=== PATIENT | male | born 1985 | race Caucasian/White ===

== ENCOUNTER 2016-04-24 17:17 | Emergency (ER) | payer OTHER ==
[~2016-04-24] VITALS: Ht 177.8 cm; Wt 90.7 kg
[~2016-04-24 17:17] MED LIST: AMOXICILLIN500 MG PO; AMOXICILLIN875 M1 PO; AMOXIL500 MG PO; BENZONATATE200 MG PO; BYSTOLIC 5MG5 MG PO; DELTASONE20 MG PO; GUAIFENESIN-COD10 ML PO; IBUPROFEN800 M1 PO; MEDROL DOSEPAK1 PAC PO; MOBIC15 M1 PO; MOTRIN800 MG PO; NAPROSYN500 M1 PO; NASONEX17 GM NASB; NOVAPLUS V0.09 MG/Ac INH; PREDNISONE20 M1 PO; PROVENTIL0.09 MG/A1 INH; ROBITUSSIN W/CO10 ML PO; TESSALON PERLE100 MG PO; VICODIN 5-3001 EACH PO; ZITHROMAX Z-PA250 M1 PO; ZOFRAN ODT4 M1 PO
[2016-04-24 17:23] VITALS: BP 141/88
--- NOTE | 2016-04-24 17:47 | ED HEAD/FACIAL INJ COMPLAINT ---
History of Present Illness General Chief Complaint: Headache Stated Complaint: PEDROZA,DIZZY,NAUSEA S/P HITTING HEAD X 2 DAYS AGO Source: patient Exam Limitations: no limitations Vital Signs & Intake/Output Vital Signs & Intake/Output Vital Signs Date Time Temp Pulse Resp B/P Pulse O2 O2 Flow FiO2 Ox Delivery Rate 04/24 1723 97.5 91 16 141/88 97 Room Air Allergies Coded Allergies: lisinopril (Severe, SWELLING TINGLING IN FACE AND LIP 04/24/16) Reconcile Medications Albuterol Sulfate (Proair Hfa) 90 MCG HFA.AER.AD 2 PUF INH PRN RESPIRATORY ( Reported) Ergocalciferol (Vitamin D2) (Vitamin D2) 50,000 UNIT CAPSULE 1 CAP PO QFRI SUPPLEMENT (Reported) Gemfibrozil 600 MG TABLET 1 TAB PO BID CHOLESTEROL (Reported) Ibuprofen 800 MG TABLET 1 TAB PO TID headache Meclizine HCl 25 MG TABLET 1 TAB PO TIDPRN dizziness Triage Note: PT STATES HE HIT HIS HEAD A COUPLE OF DAYS AGO ON A PIECE OF METAL AND STATES HE HAS BEEN DIZZY AND HAD NAUSEA SINCE. Triage Nurses Notes Reviewed? yes Onset: Abrupt Severity: severe Method of Injury: direct blow Loss of Consciousness: no loss of consciousness HPI: 30-year-old male comes into emergency room for further evaluation after hitting his head 2 days ago. No loss of consciousness. Ranging severe headache since then. Pressure. Nausea. Dizziness. Denies any other associated symptoms. Denies any neck pain. (DARELL DAMON) Past History Travel History Traveled to [place] past 21 day No Medical History Any Pertinent Medical History? 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 No (DARELL DAMON) Review of Systems Review of Systems Constitutional: Reports: no symptoms. EENTM: Reports: no symptoms. Respiratory: Reports: no symptoms. Cardiovascular: Reports: no symptoms. GI: Reports: no symptoms. Genitourinary: Reports: no symptoms. Musculoskeletal: Reports: no symptoms. Skin: Reports: no symptoms. Neurological/Psychological: Reports: see HPI. Hematologic/Endocrine: Reports: no symptoms. Immunologic/Allergic: Reports: no symptoms. All Other Systems: Reviewed and Negative (DARELL DAMON) Physical Exam Physical Exam General Appearance: well developed/nourished, mild distress Head: atraumatic, normal appearance Eyes: Bilateral: normal appearance, PERRL, EOMI. Ears, Nose, Throat: normal ENT inspection, hearing grossly normal Neck: normal inspection Respiratory: normal breath sounds, no respiratory distress Cardiovascular: regular rate/rhythm Back: normal inspection Extremities: normal inspection, normal range of motion, no edema Psychiatric: awake, alert, oriented x 3 Cranial Nerves: normal hearing, normal speech, PERRL Coordination/Gait: normal gait Motor/Sensory: no motor/sensory deficits Skin: intact, normal color, warm/dry Lymphatic: no anterior cervical yobani (DARELL DAMON) Progress Differential Diagnosis: corneal abrasion, c-spine injury, facial fracture, globe injury, ICH, orbit fracture, skull fracture, CONCUSSION Plan of Care: Orders Procedure Date/time Status CT HEAD WO IV CONTRAST 04/24 1744 Active Diagnostic Imaging: Viewed by Me: CT Scan. Discussed w/RAD: CT Scan. Radiology Impression: EXAM TYPE: CAT - CT HEAD WO IV CONTRAST EXAMINATION: CT HEAD WITHOUT CONTRAST CLINICAL INFORMATION: Headache, head trauma COMPARISON: September 02, [address] scan TECHNIQUE: Contiguous axial imaging was performed from the skull base to vertex without intravenous administration of contrast. DLP: 600.71 mGy-cm FINDINGS: There is no evidence of acute intracranial hemorrhage or territorial infarction. No abnormal mass effect or midline shift is seen. Browning to white matter differentiation is well preserved. No extra-axial fluid collections are identified. The ventricles are normal in size. There is CSF density in posterior fossa which could represent arachnoid cyst. It has not changed since comparison exam. There is no abnormal attenuation within the brain parenchyma. The osseous structures and soft tissues are normal. No acute skull fracture. The mastoid air cells and visualized portions of the paranasal sinuses are well aerated. IMPRESSION: No acute intracranial hemorrhage. DICTATED BY: CHILANGO ROSA MD DATE/TIME DICTATED:04/24/161810 HEDGE FUND MANAGER:JUAN A DATE/TIME TRANSCRIBED:04/24/161810 (DARELL DAMON) Departure Departure Disposition: HOME OR SELF CARE Condition: Stable Clinical Impression Primary Impression: Concussion Referrals: LARISSA BUNCH MD (PCP/Family) Additional Instructions: Take ibuprofen 800 and headache. Follow-up with your primary care doctor. No contact sports. Decreased visual STIMULI with electronics, TV and reading. Please go over all results of today's visit with your primary care doctor. Contact your primary care doctor to let them know you were here in the emergency room. There may be nonspecific findings which may not be related to your visit today here in the emergency room but may require further evaluation and chronic monitoring by your primary care doctor. If you had a laceration today the chance of foreign body always remains. You should follow-up with your primary care doctor for recheck in 3-5 days for a wound check. If you had an x-ray done there is a chance that a fracture could have been missed on initial read and you should follow-up with your primary care doctor for repeat x-rays if symptoms persist. If your blood pressure was elevated here in the emergency room please have rechecked by her primary care doctor within the next 48 hours by your primary care doctor. If you were prescribed a narcotic here in the emergency room or any type of controlled substances you're not allowed to drive while taking this medication or operate any type of heavy machinery. Narcotics can make you feel lightheaded dizziness nausea and can cause constipation. You may need to milk pickup driver a stool softener. Thank you for choosing [facility] emergency room. Please return to the emergency room immediately if you have any other concerns worsening of symptoms. Departure Forms: Customer Survey General Discharge Information Prescriptions: Current Visit Scripts Ibuprofen 1 TAB PO TID #30 TAB Meclizine HCl 1 TAB PO TIDPRN #20 TAB Comments 04/24/2016 7:11:03 PM Patient clinically looks well. Patient is nontoxic-appearing. Patient is no apparent distress. No evidence of acute trauma. Return if any other concerns worsening symptoms. Patient understands and agrees with plan.. (DARELL DAMON) PA/JEWEL GRINDER Co-Sign Statement Statement: ED Attending supervision documentation- [] I saw and evaluated the patient. I have also reviewed all the pertinent lab results and diagnostic results. I agree with the findings and the plan of care as documented in the PA's/JEWEL GRINDER's documentation. [X] I have reviewed the ED Record and agree with the PA's/JEWEL GRINDER's documentation. [] Additions or exceptions (if any) to the PAs/JEWEL GRINDER's note and plan are summarized below: [] (TAMIKO ANGEL,SHELBY)
[2016-04-24] MEDS ORDERED: GEMFIBROZIL600 M1 PO (18:05)
[2016-04-24] MEDS ORDERED: PROAIR HFA8.5 GM INH (18:06)
[2016-04-24] MEDS ORDERED: VITAMIN D250000 UNIT PO (18:06)
--- NOTE | 2016-04-24 18:19 | CT SCAN REPORT ---
EXAMINATION: CT HEAD WITHOUT CONTRAST CLINICAL INFORMATION: Headache, head trauma COMPARISON: September 02, [address] scan TECHNIQUE: Contiguous axial imaging was performed from the skull base to vertex without intravenous administration of contrast. DLP: 600.71 mGy-cm FINDINGS: There is no evidence of acute intracranial hemorrhage or territorial infarction. No abnormal mass effect or midline shift is seen. Browning to white matter differentiation is well preserved. No extra-axial fluid collections are identified. The ventricles are normal in size. There is CSF density in posterior fossa which could represent arachnoid cyst. It has not changed since comparison exam. There is no abnormal attenuation within the brain parenchyma. The osseous structures and soft tissues are normal. No acute skull fracture. The mastoid air cells and visualized portions of the paranasal sinuses are well aerated. IMPRESSION: No acute intracranial hemorrhage.
[2016-04-24] MEDS ORDERED: MECLIZINE HCL25 MG PO (18:54)
[2016-04-24] MEDS ORDERED: IBUPROFEN800 M1 PO (18:54)
== END 2016-04-24 18:57 ==
LOC: ERH 17:17
DX: S06.0X9A Concussion with loss of consciousness of unspecified duration, initial encounter (principal); W22.8XXA Striking against or struck by other objects, initial encounter

== ENCOUNTER 2016-07-24 12:16 | Emergency (ER) | payer OTHER ==
[~2016-07-24] VITALS: Ht 177.8 cm; Wt 106.1 kg
[~2016-07-24 12:16] MED LIST changes: +GEMFIBROZIL600 M1 PO; +MECLIZINE HCL25 MG PO; +PROAIR HFA8.5 GM INH; +VITAMIN D250000 UNIT PO
[2016-07-24 12:20] VITALS: BP 150/90
[2016-07-24] MEDS ORDERED: MEDROL4 M2 PO (14:02)
[2016-07-24] MEDS ORDERED: AZITHROMYCIN250 M1 PO (14:02)
--- NOTE | 2016-07-24 14:03 | ED INFLUENZA/URI COMPLAINT ---
History of Present Illness General Chief Complaint: Upper Respiratory Sx/Fever Stated Complaint: "STUFFY NOSE, SORE THROAT" X 1 DAY Source: patient Exam Limitations: no limitations Allergies Coded Allergies: lisinopril (Severe, SWELLING TINGLING IN FACE AND LIP 04/24/16) Triage Note: TRIAGE: 31 Y/O MALE PRESENTS FOR C/O STUFFY NOSE AND "HOT" THROAT X1 DAY. Triage Nurses Notes Reviewed? yes HPI: This patient is a 31-year-old male who presented to the emergency department today for evaluation of chest congestion, nasal congestion, general malaise, and sore throat. The patient reported that his symptoms began yesterday. He reported that the day before he was feeling, "not very good," but he reported that his symptoms have progressed over the last day. The patient reported that his throat hurts when he takes a deep breath. He denied any difficulty breathing. He denies any fevers or chills. No abdominal pain, nausea, vomiting , or diarrhea. (DANIEL DIAZ,JEF) Vital Signs & Intake/Output Vital Signs & Intake/Output ED Intake and Output 07/25 0000 05 1200 Intake Total Output Total Balance Patient 234 lb Weight Weight Reported by Patient Measurement Method Reconcile Medications Albuterol Sulfate (Proair Hfa) 90 MCG HFA.AER.AD 2 PUF INH PRN RESPIRATORY ( Reported) Azithromycin 250 MG TABLET 1 DP PO AD SINUSITIS 2 the first day followed by 1 for days 2-5 Ergocalciferol (Vitamin D2) (Vitamin D2) 50,000 UNIT CAPSULE 1 CAP PO QFRI SUPPLEMENT (Reported) Gemfibrozil 600 MG TABLET 1 TAB PO BID CHOLESTEROL (Reported) Ibuprofen 800 MG TABLET 1 TAB PO TID headache Meclizine HCl 25 MG TABLET 1 TAB PO TIDPRN dizziness Methylprednisolone. (Medrol) 4 MG TAB.DS.PK 1 DP PO AD PHARYNGITIS 6 on day 1 then reduce by one tablet daily until gone (KORI ANGEL,NOELLE) Past History Travel History Traveled to [place] past 21 day No Medical History Any Pertinent Medical History? 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 No (JEF SANCHEZ PA-C) Review of Systems Review of Systems Constitutional: Reports: no symptoms. EENTM: Reports: see HPI. Respiratory: Reports: no symptoms. Cardiovascular: Reports: no symptoms. GI: Reports: no symptoms. Genitourinary: Reports: no symptoms. Musculoskeletal: Reports: no symptoms. Skin: Reports: no symptoms. Neurological/Psychological: Reports: no symptoms. All Other Systems: Reviewed and Negative (JEF SANCHEZ PA-C) Physical Exam Physical Exam Ears, Nose, Throat: moist mucous membrane, hearing grossly normal, MILD PHARYNGEAL INJECTION WITH NO ORAL PHARYNGEAL LESIONS OR EDEMA. nO TONSILLAR EXUDATES OR UVULAR SHIFT. nO UVULAR EDEMA. nO TRISMUS OR DROOLING. nO MANDIBULAR OR MAXILLARY EDEMA. pOSITIVE NASAL CONGESTION Comments: Well-developed well-nourished person in no acute distress perrla BILATERALLY Nose is atraumatic. Neck: Supple with bilateral submandibular lymphadenopathy which is nontender. No midline tenderness. Range of motion Back: Normal gait Respiratory: Chest nontender. No respiratory distress. Speaking in full sentences Extremity: Normal and equal pulses. Neuro: Alert oriented x3, motor sensory normal, cranial nerves II through XII grossly intact. Skin: No appreciable rash on exposed skin, skin is warm and dry. Psych: Mood and affect is normal, memory and judgment is normal. Core Measures Severe Sepsis Present: No Septic Shock Present: No (JEF SANCHEZ PA-C) Progress Differential Diagnosis: influenza, meningitis, neutropenia, otitis, pneumonia, pharyngitis, sinusitis Plan of Care: This patient is a 31-year-old male who presented for evaluation of nasal congestion, chest congestion, and sore throat times one day. Likely developing sinusitis versus viral pharyngitis. This patient will be started on outpatient symptomatic management. Initial ED EKG: none (JEF SANCHEZ PA-C) Departure Departure Disposition: HOME OR SELF CARE Condition: Stable Clinical Impression Primary Impression: Sinusitis Qualifiers: Sinusitis location: unspecified location Chronicity: unspecified Qualified Code: J32.9 - Chronic sinusitis, unspecified Referrals: JESICA KOCH MD (PCP/Family) Additional Instructions: Please take antibiotic as prescribed for the full duration. Take Medrol Dosepak as prescribed. Return for any worsening symptoms or concerns. Departure Forms: Customer Survey General Discharge Information Prescriptions: Current Visit Scripts Azithromycin 1 DP PO AD #6 TAB 2 the first day followed by 1 for days 2-5 Methylprednisolone. (Medrol) 1 DP PO AD #1 DP 6 on day 1 then reduce by one tablet daily until gone (DANIEL DIAZ,JEF) PA/BATCHMAKER Co-Sign Statement Statement: ED Attending supervision documentation- I saw and evaluated the patient. I have also reviewed all the pertinent lab results and diagnostic results. I agree with the findings and the plan of care as documented in the PA's/BATCHMAKER's documentation. x I have reviewed the ED Record and agree with the PA's/BATCHMAKER's documentation. [] Additions or exceptions (if any) to the PAs/BATCHMAKER's note and plan are summarized below: [] (KORI ANGEL,NOELLE)
== END 2016-07-24 14:24 ==
LOC: ERH 12:16
DX: J32.9 Chronic sinusitis, unspecified (principal)